=== PATIENT | female | born 1965 | race Hispanic/Latino ===

== ENCOUNTER → 2022-10-10 | Outpatient (CLI) | payer BC ==
[~2022-10-10] MED LIST: GADOTERATE MEGLUMINE 10 MMOL/20 ML VIAL IV ONE
== END | disposition home or self-care (01) ==
LOC: RAH 09:16
PROVIDERS: ATTEND Dermatology
DX: D49.89 Neoplasm of unspecified behavior of other specified sites (principal)
CPT/HCPCS: 70543; A9575

== ENCOUNTER → 2023-03-21 | Outpatient (CLI) | payer BC | END | disposition home or self-care (01) | LOC: RAH 14:27 | PROVIDERS: ATTEND Urology Pediatric Urology | DX: N13.30 Unspecified hydronephrosis (principal) | CPT/HCPCS: 76770 ==

== ENCOUNTER 2024-01-13 00:09 | Inpatient (IN) | payer BC ==
[~2024-01-13] VITALS: Ht 154.9 cm; Wt 64.4 kg
[2024-01-13 00:36] LABS: APPEARANCE,URINE CLEAR (CLEAR); BILIRUBIN,URINE NEGATIVE (NEGATIVE); COLOR,URINE LIGHT-YELLOW (YELLOW); GLUCOSE, URINE (UA) NEGATIVE (NEGATIVE); KETONES,URINE 40 mg/dL (NEGATIVE); LEUKOCYTE ESTERASE ,URINE NEGATIVE Leu/uL (NEGATIVE); NITRATE,URINE NEGATIVE (NEGATIVE); OCCULT BLOOD,URINE NEGATIVE (NEGATIVE); PROTEIN,URINE 10 mg/dL (NEGATIVE); UROBILINOGEN,URINE 0.2 mg/dL (0.2-1.0)
[2024-01-13 00:37] LABS: ADD UA MICROSCOPIC YES
[2024-01-13 00:38] LABS: BACTERIA,URINE FEW /HPF (None Seen); MUCUS,URINE RARE LPF (None Seen); SQUAMOUS EPITHELIAL CELL,UR RARE /HPF (0-2)
[2024-01-13 00:42] LABS: BASOPHILS # (AUTO) 0.04 K/uL (0.00-0.20); BASOPHILS % (AUTO) 0.3 % (0.0-5.0); EOSINOPHILS # (AUTO) 0.04 K/uL (0.00-0.70); EOSINOPHILS % (AUTO) 0.3 % (0.0-8.0); HEMATOCRIT 42.6 % (36-48); IMMATURE GRANULOCYTE ABSOLUTE 0.05 K/uL (0-1); LYMPHOCYTES # (AUTO) 1.7 K/uL (1.0-4.8); LYMPHOCYTES % (AUTO) 12.4 % (21.0-51.0); MEAN CORPUSCULAR HEMOGLOBIN 29.4 pg (27.0-33.0); MEAN CORPUSCULAR HGB CONC 33.8 g/dL (32.0-36.0); MEAN CORPUSCULAR VOLUME 86.9 fL (79-99); MONOCYTES % (AUTO) 7.4 % (3.0-13.0); NEUTROPHILS % (AUTO) 79.2 % (40.0-77.0); PLATELET COUNT (AUTO) 280 K/uL (130-400); RED CELL DISTRIBUTION WIDTH 12.8 % (11.0-15.5); WHITE BLOOD COUNT (AUTO) 13.9 K/uL (4.8-10.8)
[2024-01-13] MEDS: ONDANSETRON 4MG INJ IVP ONE (00:44)
[2024-01-13] MEDS: 0.9%NACL 1000ML 1,000 ML IV ONE (00:44)
[2024-01-13] MEDS: ketOROlac 15MG/ML VIAL (15MG/ML) IV ONE (00:44)
[2024-01-13 00:50] LABS: CREATININE 1.4 mg/dL (0.5-1.0); POTASSIUM 3.7 mmol/L (3.5-5.1)
[2024-01-13] MEDS ORDERED: morPHINE 2 MG SYG IVP ONE (01:00)
[2024-01-13] MEDS: morPHINE 4 MG SYG IVP ONE (01:07)
[2024-01-13] MEDS: morPHINE 4 MG SYG IM PRN (01:56)
[2024-01-13] MEDS: cefTRIAXone 1G VIAL IVPB ONE (01:56)
[2024-01-13] MEDS ORDERED: morPHINE 4 MG SYG IV PRN (02:00)
[2024-01-13] MEDS ORDERED: acetaMINOPHEN 325 MG TAB PO PRN (02:00)
[2024-01-13] MEDS: ONDANSETRON 4MG INJ IVP PRN (04:00)
[2024-01-13] MEDS: ketOROlac 15MG/ML VIAL (15MG/ML) IV PRN (04:01)
[2024-01-13 08:00] VITALS: BP 113/61; PULSE 68; RESP 18; TEMP 97.9; O2SAT 96
[2024-01-13] MEDS ORDERED: 0.9%NACL 50ML IV SCH (08:00)
[2024-01-13] MEDS: tamSULOsin HCL 0.4 MG CAP.ER.24H PO SCH (08:15)
[2024-01-13] MEDS: morPHINE 2 MG SYG IV PRN (08:15)
[2024-01-13] MEDS: ZOSYN 3.375GM +NS 50ML IVPB SCH (08:20)
[2024-01-13 11:23] VITALS: BP 96/59; PULSE 68; RESP 18; TEMP 98.2
[2024-01-13] MEDS ORDERED: IOHEXOL-350 50ML VIAL IV ONE (13:48)
[2024-01-13 16:00] VITALS: BP 137/72; PULSE 67; RESP 18; TEMP 98.2
[2024-01-13 19:00] VITALS: BP 108/61; PULSE 66; RESP 16; TEMP 98.2
[2024-01-13 20:00] VITALS: O2SAT 95
[2024-01-13 23:00] VITALS: BP 97/61; PULSE 68; RESP 16; TEMP 98.5
[2024-01-14 03:00] VITALS: BP 103/66; PULSE 62; RESP 16; TEMP 98.3
[2024-01-14 05:31] LABS: BASOPHILS # (AUTO) 0.03 K/uL (0.00-0.20); BASOPHILS % (AUTO) 0.5 % (0.0-5.0); EOSINOPHILS # (AUTO) 0.14 K/uL (0.00-0.70); EOSINOPHILS % (AUTO) 2.4 % (0.0-8.0); IMMATURE GRANULOCYTE ABSOLUTE 0.03 K/uL (0-1); LYMPHOCYTES # (AUTO) 2.4 K/uL (1.0-4.8); LYMPHOCYTES % (AUTO) 42.2 % (21.0-51.0); MEAN CORPUSCULAR HEMOGLOBIN 29.4 pg (27.0-33.0); MEAN CORPUSCULAR HGB CONC 32.8 g/dL (32.0-36.0); MEAN CORPUSCULAR VOLUME 89.8 fL (79-99); MONOCYTES # (AUTO) 0.5 K/uL (0.1-1.0); MONOCYTES % (AUTO) 9.4 % (3.0-13.0); NEUTROPHILS # (AUTO) 2.6 K/uL (1.8-7.7); PLATELET COUNT (AUTO) 245 K/uL (130-400); RED BLOOD CELL COUNT(AUTO) 4.01 MIL/uL (4.00-5.50); RED CELL DISTRIBUTION WIDTH 12.8 % (11.0-15.5); WHITE BLOOD COUNT (AUTO) 5.8 K/uL (4.8-10.8)
[2024-01-14 05:38] LABS: ALBUMIN 3.3 g/dL (3.5-5.0); BILIRUBIN,TOTAL 0.6 mg/dL (0.2-1.0); CREATININE 1.2 mg/dL (0.5-1.0); MAGNESIUM 2.2 mg/dL (1.80-2.40); PHOSPHORUS 3.6 mg/dL (2.5-4.9); TOTAL PROTEIN, SERUM 6.5 g/dL (6.0-8.3)
[2024-01-14] MEDS: POTASSIUM CHLORIDE 20MEQ/100ML 100 ML IV PRN (06:09)
[2024-01-14 08:00] VITALS: BP 118/67; PULSE 62; RESP 16; TEMP 98.2; O2SAT 97
[2024-01-14 12:00] VITALS: BP 115/64; PULSE 69; RESP 16; TEMP 98.5
[2024-01-14] MEDS: POTASSIUM CHLORIDE 10% ELIXIR 20 MEQ/15 ML UDCUP PO PRN (12:56)
[2024-01-14] MEDS ORDERED: IOHEXOL-350 50ML VIAL IV ONE (13:52)
[2024-01-14 16:00] VITALS: BP 124/64; PULSE 58; RESP 16; TEMP 98.1
[2024-01-14 20:00] VITALS: BP 114/73; PULSE 70; RESP 18; TEMP 98.5; O2SAT 98
[2024-01-15] VITALS (8 sets, daily range): BP systolic 105–131; BP diastolic 60–77; PULSE 58–89; RESP 18; TEMP 97.8–98.5; O2SAT 94–97
[2024-01-15 05:12] LABS: HEMATOCRIT 38.6 % (36-48); MEAN CORPUSCULAR HEMOGLOBIN 29.3 pg (27.0-33.0); MEAN CORPUSCULAR HGB CONC 32.9 g/dL (32.0-36.0); MEAN CORPUSCULAR VOLUME 89.1 fL (79-99); RED BLOOD CELL COUNT(AUTO) 4.33 MIL/uL (4.00-5.50); RED CELL DISTRIBUTION WIDTH 12.5 % (11.0-15.5); WHITE BLOOD COUNT (AUTO) 5.2 K/uL (4.8-10.8)
[2024-01-15 05:26] LABS: MAGNESIUM 2.1 mg/dL (1.80-2.40); POTASSIUM 3.5 mmol/L (3.5-5.1)
[2024-01-15] MEDS: KCL 20 MEQ ERTAB PO PRN (08:43)
[2024-01-15] MEDS: LACTULOSE 20 GM/30 ML UDCUP PO SCH (11:47)
[2024-01-15] MEDS ORDERED: LACTULOSE 20 GM/30 ML UDCUP PO SCH (14:00)
[2024-01-16] VITALS: BP 96/60; PULSE 67; RESP 19; TEMP 97.8
[2024-01-16 04:00] VITALS: BP 134/72; PULSE 72; RESP 18; TEMP 98.4
[2024-01-16 05:55] LABS: HEMATOCRIT 37.5 % (36-48); MEAN CORPUSCULAR HGB CONC 32.5 g/dL (32.0-36.0); MEAN CORPUSCULAR VOLUME 89.3 fL (79-99); RED BLOOD CELL COUNT(AUTO) 4.2 MIL/uL (4.00-5.50); RED CELL DISTRIBUTION WIDTH 12.8 % (11.0-15.5); WHITE BLOOD COUNT (AUTO) 5.6 K/uL (4.8-10.8)
[2024-01-16 06:01] LABS: CREATININE 1.1 mg/dL (0.5-1.0); MAGNESIUM 2.1 mg/dL (1.80-2.40); POTASSIUM 4.1 mmol/L (3.5-5.1)
[2024-01-16 08:00] VITALS: BP 111/70; PULSE 57; RESP 19; TEMP 98.7
[2024-01-16 11:55] VITALS: BP 117/77; PULSE 72; RESP 19; TEMP 98
== END 2024-01-16 16:00 | disposition home or self-care (01) | DRG 690 ==
LOC: EDH 00:09 → EDHIP 01:58 → 3CH 06:50
PROVIDERS: ADMIT Internal Medicine Infectious Disease; ATTEND Internal Medicine Infectious Disease
DX: N13.6 Pyonephrosis (principal); N17.9 Acute kidney failure, unspecified; E87.6 Hypokalemia; D72.829 Elevated white blood cell count, unspecified; Z79.899 Other long term (current) drug therapy
CPT/HCPCS: 36415; 74176; 74400; 80048; 80053; 81001; 82550; 83735; 84100; 85025; 85027; 96374; 96375; G0378; J0696; J1885; J2270; J2405; J2543; J3480; Q9967

== ENCOUNTER → 2024-04-03 | Outpatient (CLI) | payer BC ==
--- NOTE | 2024-04-03 15:21 | HMCIMG ---
CT ABD/PEL WO CON RENAL/APPY REASON: N20.0 KIDNEY STONES COMPARISON: 01/13/2024 FINDINGS: Lung bases are clear. There are no focal liver lesions. The liver does not appear enlarged.. Spleen and pancreas appear unremarkable. The gallbladder appears normal as well. There are normal-appearing kidneys. There is no hydronephrosis. There is no perinephric stranding. Ureters appear unremarkable with the exception of the distal left ureter. The 6 mm calcification at the ureterovesical junction seen on previous exam remains present, findings are of concern for a nonobstructing stone. There are no visible stones on the right. Bowel loops appear unremarkable. There is no CT evidence of acute appendicitis. There is no evidence of free fluid or intraperitoneal air. There are no focal fluid collections. Aorta and retroperitoneum appear normal as do pelvic soft tissue structures. The anterior abdominal wall is intact. Osseous structures appear unremarkable. IMPRESSION: 1. 6 mm calcification at the left ureteral vesicle junction seen on previous exam remains present, this may reflect a distal left ureteral stone. 2. There is no evidence of hydronephrosis or ureteral obstruction at this time. 3. Otherwise unremarkable noncontrast CT abdomen and pelvis. CT was performed with one or more following dose reduction techniques: automated exposure control, adjustment of the mA and kv according to patient's size, or use of a iterative reconstruction technique.
== END | disposition home or self-care (01) ==
LOC: RAH 14:03
PROVIDERS: ATTEND Urology
DX: N20.0 Calculus of kidney (principal); N85.8 Other specified noninflammatory disorders of uterus
CPT/HCPCS: 74176